=== PATIENT | male | born 1960 | race Caucasian/White ===

== ENCOUNTER → 2021-09-16 15:27 | Outpatient (NON) | payer OTHER, SELFPAY ==
[2020-07-04 16:54] LABS: SARS-CoV-2 RNA PCR Negative
== END | disposition home or self-care (01) ==
PROVIDERS: PCP Family Medicine; Visit Provider Physician Assistant
DX: Z20.828 Contact with and (suspected) exposure to other viral communicable diseases (principal)
CPT/HCPCS: 87635; C9803; U0003

== ENCOUNTER 2022-07-30 08:05 | Outpatient (CLI) | payer OTHER, SELFPAY ==
--- NOTE | ~2022-07-30 | CT_ITS ---
EXAMINATION: CTA chest PE protocol DATE: 07/30/2022 08:49 INDICATION: Cough. Tachycardia. TECHNIQUE: Computed tomography angiography (CTA) of the chest was performed with 100 mL Omnipaque-350 intravenous contrast timed to evaluate the pulmonary arteries. Coronal maximum intensity projection 3D-reconstructions were created by the technologist. Automated exposure control and iterative reconst ruction technique were employed. The dose-length product was 508.94 mGy-cm. COMPARISON: Chest CT 12/05/2010 FINDINGS: There is mild emphysema. There is mild dependent atelectasis bilaterally. A calcified left lung nodule and calcified left hilar lymph nodes are consistent with old granulomatous disease. No pl eural effusion. The heart size is normal. There are coronary artery calcifications. No pericardial ef fusion. There is no pulmonary embolus. Material in the gallbladder may be sludge or stones. There is mild thoracic spondylosis. There are multiple chronic compression fractures in thoracic spine. IMPRESSION: 1. No pulmonary embolus. 2. Mild emphysema. Reviewed, dictated and finalized at location A.
== END 2022-07-30 08:06 | disposition home or self-care (01) ==
PROVIDERS: PCP Family Medicine; Visit Provider Physician Assistant
DX: R00.0 Tachycardia, unspecified (principal); R79.89 Other specified abnormal findings of blood chemistry; J43.9 Emphysema, unspecified
CPT/HCPCS: 71275; Q9967

== ENCOUNTER 2023-05-06 03:37 | Day surgery (SDC) | payer MEDICARE, SELFPAY ==
[2023-04-26 14:56] VITALS: BMI 24.3
--- NOTE | 2023-05-05 16:10 | PM.HPGS ---
History of Present Illness History of Present Illness Consent: Risks, benefits, and alternatives have been discussed and questions answered. Patient agrees to proceed with procedure. Chief complaint: positive cologuard Narrative: Yefri Muniz is a 63 year old male Referred for colon cancer screening. A Cologuard test was positive. His last colonoscopy was 15 years ago. Review of Systems Review of Systems: All systems reviewed & are unremarkable except as noted in HPI and below PMFSH Past Medical History Medical History Abnormal EKG Hypokalemia Hypomagnesemia PVC (premature ventricular contraction) Rash Family History Family History Mother Family history of pancreatic cancer Social History Social History Smoking packs per day: 1.5 Smoking cigarettes per day: 30.0 Years smoked: 40 Smoking pack-years: 60.00 Smoking status: Current every day smoker Tobacco type: cigarettes Second hand tobacco smoke exposure: Yes Alcohol intake: never Substance use: never Substance use type: does not use Living arrangements: with family Occupation/Education: retired Gender identity (if verbalized by the patient): Male Spiritual care concerns: No Meds Home Medications and Allergies Home Medications Medication Instructions Recorded Confirmed Type thiamine HCl (vitamin B1) 100 mg 100 mg PO DAILY #90 tabs 08/11/22 05/06/23 Rx tablet gabapentin 300 mg capsule 300 mg PO BID #180 caps 03/22/23 05/06/23 Rx metoprolol succinate 25 mg See Rx Instructions .Route 03/22/23 05/06/23 Rx tablet,extended release 24 hr .COMPLEX #90 tabs Allergies Allergy/AdvReac Type Severity Reaction Status Date / Time No Known Allergies Allergy Verified 05/06/23 07:52 Exam Const: General: alert Orientation/consciousness: patient oriented x3 Resp: Auscultation: clear to auscultation bilaterally Cardio: Rhythm: regular rhythm GI: GI Palp: Yes Soft to palpation and No Tenderness to palpation present (GI) Neuro: General: patient oriented x3 Assessment and Plan Assessment and plan (1) Colon cancer screening: Code(s): Z12.11 - Encounter for screening for malignant neoplasm of colon Status: Acute Assessment and Plan: Colonoscopy with possible biopsy or polypectomy or cautery or injection of substances.
[2023-05-06 07:53] VITALS: BP 133/74; PULSE 109; RESP 20; TEMP 36.6; O2SAT 100; BMI 24.2
--- NOTE | 2023-05-06 07:59 | WPDANESEPPF ---
Anes - Initial Pre Proc Eval Procedure: Operation Date: 05/06/23 09:30 Proposed Procedures p Colonoscopy - Tony Dooley MD Date/Time: 05/06/23 07:59 Surgeon: Tony Dooley MD Pre Op Diagnosis: positive cologuard Patient Data Age: 63 Gender: M Height: 1.73 m Weight: 72.2 kg Last Vital Signs Temp 97.8 F 05/06/23 07:53 Pulse 109 H 05/06/23 07:53 Resp 20 05/06/23 07:53 BP 133/74 05/06/23 07:53 Pulse Ox 100 05/06/23 07:53 O2 Del Method Room Air 05/06/23 07:53 Allergies Allergy/AdvReac Type Severity Reaction Status Date / Time No Known Allergies Allergy Verified 05/06/23 07:52 Home Medications Medication Instructions Recorded Confirmed Type thiamine HCl (vitamin B1) 100 mg 100 mg PO DAILY #90 tabs 08/11/22 05/06/23 Rx tablet gabapentin 300 mg capsule 300 mg PO BID #180 caps 03/22/23 05/06/23 Rx metoprolol succinate 25 mg See Rx Instructions .Route 03/22/23 05/06/23 Rx tablet,extended release 24 hr .COMPLEX #90 tabs Patient hx anesthesia problems: none Family hx anesthesia problems: none Results Review: All pre-operative results and documents have been reviewed as part of the pre-operative evaluation. FOR[facility] Past Medical History Medical History Abnormal EKG Hypokalemia Hypomagnesemia PVC (premature ventricular contraction) Rash Family History Family History Mother Family history of pancreatic cancer Social History Social History Smoking packs per day: 1.5 Smoking cigarettes per day: 30.0 Years smoked: 40 Smoking pack-years: 60.00 Smoking status: Current every day smoker Tobacco type: cigarettes Second hand tobacco smoke exposure: Yes Alcohol intake: never Substance use: never Substance use type: does not use Living arrangements: with family Occupation/Education: retired Gender identity (if verbalized by the patient): Male Spiritual care concerns: No Anes - Eval Final PreProcedure Day of Procedure 05/06/23 07:59 Patient weight: normal Heart: regular rate and rhythm Lungs: clear to auscultation Airway: Mallampati scale class II Neurological: alert and oriented Last oral intake: >/= 8 hours ASA classification: II Emergent: no Anesthetic plan: proceed Anesthesia type and monitoring: general GIVS and standard monitoring Results Review: All pre-operative results and documents have been reviewed as part of the pre-operative evaluation. Informed Consent: The patient's anesthetic plan and its attendant risks and benefits were discussed with the patient/family/POA. Questions were solicited and answers provided to the satisfaction of the patient/family/POA.
[2023-05-06] MEDS: LACTATED RINGERS 1,000 ML 150 ML IV CONT (08:06)
[2023-05-06] MEDS: SIMETHICONE ORAL SUSPENSION 20 MG/0.3 ML 30 ML BOTTLE 0.6 ML IRRIGATION (09:12)
[2023-05-06 09:41] VITALS: BP 116/70; PULSE 88; RESP 22; O2SAT 97
[2023-05-06 09:51] VITALS: BP 133/90; PULSE 87; RESP 24; O2SAT 100
[2023-05-06 10:01] VITALS: BP 132/75; PULSE 85; RESP 16; O2SAT 100
== END 2023-05-06 10:20 | disposition home or self-care (01) ==
PROVIDERS: PCP Family Medicine; Visit Provider Internal Medicine Gastroenterology
PROC: 0DJD8ZZ Inspection of Lower Intestinal Tract, Via Natural or Artificial Opening Endoscopic (ICD-10-PCS; CPT 45378; principal; 2023-05-06 09:30)
DX: Z12.11 Encounter for screening for malignant neoplasm of colon (principal); D12.4 Benign neoplasm of descending colon; D12.5 Benign neoplasm of sigmoid colon; I49.3 Ventricular premature depolarization; F17.210 Nicotine dependence, cigarettes, uncomplicated
CPT/HCPCS: 45385; 45381; 88305; J2704; J7120

== ENCOUNTER → 2023-08-31 08:42 | Outpatient (CLI) | payer MEDICARE, SELFPAY ==
--- NOTE | ~2023-08-31 | CT_ITS ---
CT Scan of the Chest without Contrast: Clinical Indication: Lung cancer screening, personal history of nicotine dependence Technique: Contiguous sections were acquired throughout the chest without intravenous contrast. Dose reduction technique was used on this scan by utilizing automated exposure control and iterative recon struction technique. The dose-length product (DLP) was 100.49 mGy-cm. COMPARISON: 07/30/2022 Findings: There is no evidence of any significant mediastinal, hilar or axillary lymphadenopathy. Coronary roni ry calcifications are present. There is no evidence of pleural or pericardial effusion. Calcified lingular granuloma noted. No noncalcified pulmonary nodule seen. Images through the upper abdomen reveal small layering gallstones and/or gallbladder sludge. Multipl e mild compression fractures in the spine are stable from prior exam. Impression: Lung RADS 2: Benign appearance. 12 month follow-up screening CT advised. Reviewed, dictated and finalized at [facility]. CTOR INFORMATION Impression: Lung RADS 2: Benign appearance. 12 month follow-up screening CT advised.
== END ==
PROVIDERS: PCP Physician Assistant; Visit Provider Physician Assistant
DX: Z12.2 Encounter for screening for malignant neoplasm of respiratory organs (principal); R91.8 Other nonspecific abnormal finding of lung field; Z87.891 Personal history of nicotine dependence
CPT/HCPCS: 71271

== ENCOUNTER 2025-03-08 08:04 | Outpatient (CLI) | payer MEDICARE, SELFPAY ==
--- NOTE | ~2025-03-08 | CT_ITS ---
CT Scan of the Chest without Contrast: Clinical Indication: Lung cancer screening, nicotine dependence Technique: Contiguous sections were acquired throughout the chest without intravenous contrast. Dose reduction technique was used on this scan by utilizing automated exposure control and iterative recon struction technique. The dose-length product (DLP) was 100.73 mGy-cm. Findings: There is no evidence of any significant mediastinal, hilar or axillary lymphadenopathy. Coronary roni ry calcifications are present. There is no evidence of pleural or pericardial effusion. No pulmonary nodule seen. There is mild groundglass opacity in the anterior right middle lobe and foc ally in the lateral right lower lobe. Calcified left upper lobe granuloma present. Images through the upper abdomen reveal no abnormalities. There are chronic compression fracture defo rmities of T7, T9, and L1. Impression: Lung RADS 2-S: Benign appearance. 12 month follow-up screening CT advised. Mild groundglass opacity in the anterior right middle lobe and focally in the lateral right lower lob e. Findings could reflect pneumonitis. Reviewed, dictated and finalized at location M. Impression: Lung RADS 2-S: Benign appearance. 12 month follow-up screening CT advised. Mild groundglass opacity in the anterior right middle lobe and focally in the l ateral right lower lobe. Findings could reflect pneumonitis.
== END 2025-03-08 08:05 | disposition home or self-care (01) ==
LOC: MICIMG 08:06
PROVIDERS: PCP Family Medicine; Visit Provider Physician Assistant
DX: Z12.2 Encounter for screening for malignant neoplasm of respiratory organs (principal); Z87.891 Personal history of nicotine dependence
CPT/HCPCS: 71271